=== PATIENT | male | born 1975 ===

== ENCOUNTER 2020-01-09 11:02 | Emergency (ER) | payer MEDICAID ==
[~2020-01-09] VITALS: Ht 182.9 cm; Wt 100.0 kg
--- NOTE | 2020-01-09 11:31 | NUR ---
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
--- NOTE | 2020-01-09 11:47 | NUR ---
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 PT DENIES SYMPTOMS. PT VSS, NADN. LAB IN ROOM. PT RESTING ON Talent Flush W/ CALL LIGHT IN REACH AND SIDE RAILS UPX2.
--- NOTE | 2020-01-09 11:53 | NUR ---
PT STATES UNABLE TO PROVIDE URINE SAMPLE.
[2020-01-09] MEDS ORDERED: KETOROLAC 30 MG/1 ML IVPush ONE (12:00)
[2020-01-09] MEDS ORDERED: SODIUM CHLORIDE FLUSH 10ML SYR IVF ONE (12:00)
[2020-01-09] MEDS ORDERED: ONDANSETRON 2MG/ML, 2ML IVPush ONE (12:00)
[2020-01-09 12:09] LABS: BASOPHILS % (AUTO) 1 % (0-1); EOSINOPHILS % (AUTO) 4 % (1-7); LYMPHOCYTES % (AUTO) 22 % (22-44); MEAN CORPUSCULAR HEMOGLOBIN 29.7 pg (27.5-34.5); MEAN CORPUSCULAR HGB CONC 33.4 g/dL (33.2-36.2); MEAN PLATELET VOLUME 8.8 fL (7.4-10.4); MONOCYTES % (AUTO) 7 % (2-9); NEUTROPHILS % (AUTO) 67 % (42-75); PLATELET COUNT 311 x10^3/uL (130-400); RED BLOOD COUNT 5.23 x10^6/uL (4.38-5.82); RED CELL DISTRIBUTION WIDTH 14.6 % (9.4-14.8)
[2020-01-09] MEDS ORDERED: KETOROLAC 30 MG/1 ML ONE (12:10)
[2020-01-09] MEDS ORDERED: ONDANSETRON 2MG/ML, 2ML ONE (12:10)
[2020-01-09 12:11] LABS: ALANINE AMINOTRANSFERASE 104 U/L (12-78); ALBUMIN 3.7 g/dL (3.4-5.0); ANION GAP 8 mmol/L (5-15); CALCIUM 9.4 mg/dL (8.5-10.1); CHLORIDE 109 mmol/L (98-107); CREATININE 1.36 mg/dL (0.7-1.3)
[2020-01-09 12:13] LABS: ALKALINE PHOSPHATASE 103 U/L (45-117); BILIRUBIN,TOTAL 0.6 mg/dL (0.2-1.0); TOTAL PROTEIN 7.6 g/dL (6.4-8.2)
[2020-01-09 12:20] VITALS: BP 130/61
--- NOTE | 2020-01-09 12:22 | NUR ---
PIV STARTED, PT MEDICATED PER EMAR. URINE COLLECTED AND SENT TO LAB. PT RESTING ON CIQUAL W/ CALL LIGHT IN REACH AND SIDE RAILS UPX2. CLARK HINDS.
--- NOTE | 2020-01-09 12:30 | NUR ---
PT DESAT AFTER MEDS. PLACED ON 4L W? DESIRED EFFECT.
[2020-01-09 12:33] LABS: MICROSCOPIC INDICATED
[2020-01-09 12:42] LABS: MD SCAN
--- NOTE | 2020-01-09 12:42 | NUR ---
PT REPORTS RELIEF OF PAIN AFTER MEDS. RESTING MUCH MORE COMFORTABLY. VSS, SINAIN.
--- NOTE | 2020-01-09 12:57 | NUR ---
ALL TESTS RESULTED. PT IS UP FOR RECHECK AT THIS TIME.
--- NOTE | 2020-01-09 13:52 | NUR ---
Patient given discharge instructions and they have confirmed that they understand the instructions. Patient ambulatory with steady gait.
== END 2020-01-09 13:54 | disposition home or self-care (01) ==
LOC: ED 13:12
DX: N13.2 Hydronephrosis with renal and ureteral calculous obstruction (principal); R10.31 Right lower quadrant pain; F17.210 Nicotine dependence, cigarettes, uncomplicated
CPT/HCPCS: 36415; 74176; 80053; 81001; 85025; 96374; 96375; 99284; 99406; J1885; J2405